=== PATIENT | female | born 1950 | race Caucasian/White ===

== ENCOUNTER 2016-12-20 22:18 | Inpatient (IN) | payer MEDICAID, MEDICARE ==
[~2016-12-20] VITALS: Ht 175.3 cm; Wt 67.1 kg
[2016-12-20 22:18] VITALS: BP_SYST 142
[~2016-12-20 22:18] MED LIST: ALBU2.5V7 INH; ALPR0.5T96 PO; ASPI81TA2 PO; BUDE6HFA INH; CARV3.1246 PO; CEFU500T PO; ESCI10TA54 PO; FAMO20TA8 PO; FLUT1DIS3 INH; FURO-149 PO; GLIP10TA74 PO; GLUXR500 PO; INSU100V7 SUBCUT; INSU100V9 SUBCUT; LISI-209 PO; SPIRIVA IH; TRAM50TA92 PO
[2016-12-20] MEDS ORDERED: CLOPIDOGREL BISULFATE 75 MG TABLET PO ONE (22:30)
[2016-12-20] MEDS ORDERED: ASPIRIN 325 MG TABLET PO ONE (22:30)
[2016-12-20] MEDS ORDERED: NITROGLYCERIN 0.4 MG TAB.SUBL SL ONE (23:00)
[2016-12-20 23:08] LABS: BILIRUBIN,URINE NEGATIVE (NEGATIVE); BLOOD, URINE NEGATIVE (NEGATIVE); CLARITY/URINE HAZY (CLEAR); COLOR,URINE YELLOW (YELLOW); GLUCOSE,URINE 1+ (NEGATIVE); KETONES,URINE NEGATIVE (NEGATIVE); LEUKOCYTE ESTERASE ,URINE 2+ (NEGATIVE); NITRITE, URINE NEGATIVE (NEGATIVE); PROTEIN URINE TRACE (NEGATIVE); UROBILINOGEN,URINE 0.2 (0.2-1.0)
[2016-12-20 23:11] LABS: BASOPHILS % (AUTO) 0.5 % (0.0-2.0); EOSINOPHILS # (AUTO) 0.3 K/uL (0.0-0.4); EOSINOPHILS % (AUTO) 5.4 % (0.0-4.0); HEMATOCRIT 43.8 % (36-48); HEMOGLOBIN 14.2 g/dL (12.0-16.0); LYMPHOCYTES # (AUTO) 1.8 K/uL (1.0-5.5); LYMPHOCYTES % (AUTO) 28.1 % (20.5-51.5); MEAN CORPUSCULAR HEMOGLOBIN 29 pg (27-31); MEAN CORPUSCULAR HGB CONC 32 % (32-36); MEAN CORPUSCULAR VOLUME 89 fL (79.0-98.0); MONOCYTES # (AUTO) 0.3 K/uL (0.0-1.0); MONOCYTES % (AUTO) 5.3 % (1.7-9.3); NEUTROPHILS # (AUTO) 4.1 K/uL (1.8-7.7); NEUTROPHILS % (AUTO) 60.7 % (40.0-70.0); PLATELET COUNT (AUTO) 253 K/uL (130-430); RED BLOOD CELL COUNT(AUTO) 4.95 MIL/uL (4.2-6.2); RED CELL DISTRIBUTION WIDTH 11.9 % (9.0-15.0); WHITE BLOOD COUNT (AUTO) 6.4 K/uL (4.8-10.8)
[2016-12-20 23:13] LABS: BACTERIA,URINE MODERATE /HPF (None Seen); RBC,URINE 0-3 /HPF (0-3)
[2016-12-20 23:14] LABS: MUCUS,URINE 1+ /LPF (None Seen); YEAST,URINE Rare /HPF (None Seen)
[2016-12-20 23:18] LABS: CALCIUM 9.2 mg/dL (8.4-11.0); CREATININE 0.79 mg/dL (0.55-1.30); POTASSIUM 3.4 mmol/L (3.5-5.1)
[2016-12-20 23:22] LABS: PROTHROMBIN TIME 10.4 SECS (9.5-12.5)
[2016-12-20 23:23] LABS: ALBUMIN 3.7 g/dL (3.4-4.8); TOTAL BILIRUBIN 0.5 mg/dL (0.0-1.0)
[2016-12-21] MEDS ORDERED: MORPHINE 4 MG/ML INJ. SYRINGE IVP ONE (00:15)
[2016-12-21] MEDS ORDERED: INSULIN REGULAR, HUMAN 10 UNITS/0.1 ML INJ IVP ONE (00:45)
[2016-12-21] MEDS ORDERED: POTASSIUM CHLORIDE 20 MEQ/PKT PACKET PO ONE (00:45)
[2016-12-21] MEDS ORDERED: 0.45% NACL 1,000 ML IV SCH (00:51)
[2016-12-21] MEDS ORDERED: NITROGLYCERIN 0.4 MG TAB.SUBL SL PRN (01:00)
[2016-12-21] MEDS ORDERED: MORPHINE 2 MG/ML INJ. SYRINGE IVP PRN (01:00)
[2016-12-21] MEDS ORDERED: ALBUTEROL SULFATE 0.083% 2.5 MG/3 ML VIAL.NEB INH PRN (01:15)
[2016-12-21] MEDS ORDERED: DILTIAZEM HCL 120 MG CAP.SR.24H PO ONE (01:45)
[2016-12-21] MEDS ORDERED: DILTIAZEM HCL 60 MG TABLET ONE (01:55)
[2016-12-21] MEDS ORDERED: ACETAMINOPHEN 500 MG TABLET PO PRN (02:00)
[2016-12-21] MEDS: ALPRAZolam 0.25 MG TABLET PO PRN ×2 (02:14→09:59)
[2016-12-21 02:17] VITALS: BP_SYST 136
[2016-12-21] MEDS: INSULIN REGULAR, HUMAN 100 UNITS/ML, 10 ML VIAL (novoLIN R) SUBCUT PRN ×2 (05:32→17:35)
[2016-12-21] MEDS ORDERED: traMADol HCL HCL 50 MG TABLET (ULTRAM) PO SCH (06:00)
[2016-12-21] MEDS: ALBUTEROL SULFATE 0.083% 2.5 MG/3 ML VIAL.NEB INH SCH ×3 (07:31→21:14)
[2016-12-21] MEDS: IPRATROPIUM BROM 0.5 MG/2.5 ML VIAL.NEB (ATROVENT) INH SCH ×3 (07:31→21:15)
[2016-12-21 08:00] VITALS: BP_SYST 109
[2016-12-21] MEDS ORDERED: FLUTICASONE/VILANTEROL 1 EACH BLST.W.DEV INH PRN (09:00)
[2016-12-21] MEDS ORDERED: CARVEDILOL 3.125 MG TABLET (COREG) PO SCH (09:00)
[2016-12-21] MEDS ORDERED: CEFUROXIME AXETIL 250 MG TABLET PO SCH (09:00)
[2016-12-21] MEDS: CITALOPRAM HYDROBROMIDE 20 MG TABLET PO SCH (09:24)
[2016-12-21] MEDS: ASPIRIN 81 MG TAB.CHEW PO SCH (09:25)
[2016-12-21] MEDS: FAMOTIDINE 20 MG TABLET PO SCH ×2 (09:25→21:10)
[2016-12-21] MEDS: FUROSEMIDE 40 MG TABLET PO SCH (09:55)
[2016-12-21] MEDS: LISINOPRIL 5 MG TABLET PO SCH (09:55)
[2016-12-21 11:36] VITALS: BP_SYST 136
[2016-12-21] MEDS: FLUTICASONE/VILANTEROL 1 EACH BLST.W.DEV INH SCH (12:16)
[2016-12-21] MEDS: INSULIN REGULAR, HUMAN 100 UNITS/ML, 10 ML VIAL SUBCUT SCH ×2 (12:21→17:33)
[2016-12-21] MEDS: CARVEDILOL 3.125 MG TABLET (COREG) PO SCH ×2 (12:27→21:10)
[2016-12-21 12:38] VITALS: BP_SYST 119
[2016-12-21] MEDS ORDERED: HYDROcodone/ACETAMIN 5-325 MG TAB (NORCO/ VICODIN) PO PRN (13:15)
[2016-12-21 16:43] VITALS: BP_SYST 120
[2016-12-21 19:50] VITALS: BP_SYST 107
[2016-12-21] MEDS: GABAPENTIN 100 MG CAPSULE PO SCH (21:10)
[2016-12-21] MEDS: LEVOFLOXACIN 500 MG/D5W 100 ML IV SCH (21:15)
[2016-12-22] VITALS (7 sets, daily range): BP systolic 100–124
[2016-12-22] MEDS: INSULIN REGULAR, HUMAN 100 UNITS/ML, 10 ML VIAL (novoLIN R) SUBCUT PRN ×2 (00:07→12:06)
[2016-12-22] MEDS: INSULIN REGULAR, HUMAN 100 UNITS/ML, 10 ML VIAL SUBCUT SCH ×3 (06:33→17:36)
[2016-12-22] MEDS: IPRATROPIUM BROM 0.5 MG/2.5 ML VIAL.NEB (ATROVENT) INH SCH ×3 (07:00→15:28)
[2016-12-22] MEDS: ALBUTEROL SULFATE 0.083% 2.5 MG/3 ML VIAL.NEB INH SCH ×2 (07:00→15:28)
[2016-12-22 07:21] LABS: BASOPHILS % (AUTO) 0.6 % (0.0-2.0); EOSINOPHILS # (AUTO) 0.4 K/uL (0.0-0.4); EOSINOPHILS % (AUTO) 5.5 % (0.0-4.0); MONOCYTES # (AUTO) 0.5 K/uL (0.0-1.0)
[2016-12-22 07:25] LABS: HEMATOCRIT 42.8 % (36-48); HEMOGLOBIN 14.3 g/dL (12.0-16.0); LYMPHOCYTES # (AUTO) 1.7 K/uL (1.0-5.5); LYMPHOCYTES % (AUTO) 22.2 % (20.5-51.5); MEAN CORPUSCULAR HEMOGLOBIN 30 pg (27-31); MEAN CORPUSCULAR HGB CONC 33 % (32-36); MEAN CORPUSCULAR VOLUME 89 fL (79.0-98.0); MONOCYTES % (AUTO) 6.2 % (1.7-9.3); NEUTROPHILS % (AUTO) 65.5 % (40.0-70.0); PLATELET COUNT (AUTO) 278 K/uL (130-430); RED BLOOD CELL COUNT(AUTO) 4.79 MIL/uL (4.2-6.2); RED CELL DISTRIBUTION WIDTH 11.8 % (9.0-15.0); WHITE BLOOD COUNT (AUTO) 7.6 K/uL (4.8-10.8)
[2016-12-22 07:32] LABS: ALBUMIN 3.3 g/dL (3.4-4.8); CALCIUM 8.9 mg/dL (8.4-11.0); CREATININE 0.9 mg/dL (0.55-1.30); POTASSIUM 3.7 mmol/L (3.5-5.1); TOTAL BILIRUBIN 0.5 mg/dL (0.0-1.0)
[2016-12-22] MEDS: ASPIRIN 81 MG TAB.CHEW PO SCH (08:52)
[2016-12-22] MEDS: FAMOTIDINE 20 MG TABLET PO SCH ×2 (08:52→21:07)
[2016-12-22] MEDS: FLUTICASONE/VILANTEROL 1 EACH BLST.W.DEV INH SCH (08:52)
[2016-12-22] MEDS: GABAPENTIN 100 MG CAPSULE PO SCH ×2 (08:52→21:07)
[2016-12-22] MEDS: CITALOPRAM HYDROBROMIDE 20 MG TABLET PO SCH (08:52)
[2016-12-22] MEDS: FUROSEMIDE 40 MG TABLET PO SCH (08:53)
[2016-12-22] MEDS: LISINOPRIL 5 MG TABLET PO SCH (08:56)
[2016-12-22] MEDS: CARVEDILOL 3.125 MG TABLET (COREG) PO SCH ×2 (08:56→21:08)
[2016-12-22] MEDS: ALPRAZolam 0.25 MG TABLET PO PRN ×2 (08:57→21:07)
[2016-12-22] MEDS ORDERED: LEVO500T20 PO (18:27)
[2016-12-22] MEDS ORDERED: CARV6.2554 PO (18:28)
[2016-12-22] MEDS: LEVOFLOXACIN 500 MG/D5W 100 ML IV SCH (21:00)
== END 2016-12-22 23:41 | disposition home or self-care (01) | DRG 463 ==
LOC: SED 22:18 → STU 12-21 00:51
PROVIDERS: ADMIT Family Medicine; ATTEND Family Medicine
DX: N39.0 Urinary tract infection, site not specified (principal); I11.0 Hypertensive heart disease with heart failure; E11.40 Type 2 diabetes mellitus with diabetic neuropathy, unspecified; I50.9 Heart failure, unspecified; I42.0 Dilated cardiomyopathy; R07.9 Chest pain, unspecified; K21.9 Gastro-esophageal reflux disease without esophagitis; E11.51 Type 2 diabetes mellitus with diabetic peripheral angiopathy without gangrene; J44.9 Chronic obstructive pulmonary disease, unspecified; F41.9 Anxiety disorder, unspecified; M19.90 Unspecified osteoarthritis, unspecified site; E78.5 Hyperlipidemia, unspecified; I25.10 Atherosclerotic heart disease of native coronary artery without angina pectoris; I44.7 Left bundle-branch block, unspecified; Z86.73 Personal history of transient ischemic attack (TIA), and cerebral infarction without residual deficits; Z91.14 Patient's other noncompliance with medication regimen; I25.2 Old myocardial infarction; Z85.41 Personal history of malignant neoplasm of cervix uteri; Z90.710 Acquired absence of both cervix and uterus; Z88.5 Allergy status to narcotic agent; Z88.0 Allergy status to penicillin; Z95.810 Presence of automatic (implantable) cardiac defibrillator; Z87.891 Personal history of nicotine dependence; Z79.82 Long term (current) use of aspirin; Z79.899 Other long term (current) drug therapy
CPT/HCPCS: 36415; 71010; 80053; 80061; 81000-TC; 82550-TC; 82962; 83036; 83880; 84484; 85025; 85610-TC; 85730-TC; 87086; 93005; 93306; 94640; 94760; 96365; 96375; 99285; J1815; J1956; J2270